=== PATIENT | female | born 1965 | race Caucasian/White ===

== ENCOUNTER → 2016-07-29 | Outpatient (CLI) | payer BC ==
[~2016-07-29] MED LIST: ALAWAY10 ML BOTH EYES; ALLEGRA60 MG PO; DAILY VITAMIN1 EAC4 PO; ESTROSTEP FE PO; NASACORT10.8 ML BOTH NARES; SYNTHROID137 MCG PO; VITAMIN D31000 UNI2 PO
== END | disposition home or self-care (01) ==
LOC: NUC 07:53
DX: C73 Malignant neoplasm of thyroid gland (principal)
CPT/HCPCS: 78018; 78999; A9517